=== PATIENT | male | born 1990 | race Caucasian/White ===

== ENCOUNTER → 2017-08-31 | Outpatient (CLI) | payer OTHER ==
[~2017-08-31] MED LIST: BACTRIM DS 8001 TA1 PO; VICODIN 5/500 505 MG PO
== END ==
LOC: RAD 20:11
DX: M54.5 Low back pain (principal)

== ENCOUNTER → 2018-04-01 | Outpatient (CLI) | payer BC, OTHER ==
[2018-04-08 13:03] LABS: HLA-B27 ANTIGEN Negative (.)
== END | disposition home or self-care (01) ==
LOC: LAB 14:55
PROVIDERS: Physical Medicine & Rehabilitation Sports Medicine
DX: M54.5 Low back pain (principal); M53.80 Other specified dorsopathies, site unspecified

== ENCOUNTER 2019-07-29 09:59 | Emergency (ER) | payer OTHER ==
[~2019-07-29] VITALS: Ht 182.8 cm; Wt 102.1 kg
[2019-07-29] MEDS ORDERED: CYCLOBENZAPRINE10 MG PO (11:59)
[2019-07-29] MEDS ORDERED: IBU800 MG PO (11:59)
== END 2019-07-29 10:12 | disposition home or self-care (01) ==
LOC: ED 09:59
DX: S16.1XXA Strain of muscle, fascia and tendon at neck level, initial encounter (principal); M62.830 Muscle spasm of back; M54.6 Pain in thoracic spine; Z79.2 Long term (current) use of antibiotics; V89.2XXA Person injured in unspecified motor-vehicle accident, traffic, initial encounter; Y93.I9 Activity, other involving external motion; Y92.488 Other paved roadways as the place of occurrence of the external cause; Y99.0 Civilian activity done for income or pay